=== PATIENT | male | born 1970 | race Caucasian/White ===

== ENCOUNTER 2023-03-20 22:45 | Inpatient (IN) | payer OTHER, BC ==
[~2023-03-20] VITALS: Ht 180.3 cm; Wt 92.5 kg
[2023-03-20 22:51] VITALS: BP_SYST 101; PULSE 98; RESP 20; TEMP 97.7; O2SAT 99
[2023-03-20 23:53] LABS: BASOPHILS # (AUTO) 0.1 K/uL (0.0-0.2); BASOPHILS % (AUTO) 0.8 % (0.0-2.0); EOSINOPHILS # (AUTO) 0.2 K/uL (0.0-0.4); EOSINOPHILS % (AUTO) 2.7 % (0.0-4.0); HEMATOCRIT 33.9 % (36-54); HEMOGLOBIN 10.7 g/dL (14.0-18.0); LYMPHOCYTES # (AUTO) 1.3 K/uL (1.0-5.5); LYMPHOCYTES % (AUTO) 19.6 % (20.5-51.5); MEAN CORPUSCULAR HEMOGLOBIN 29 pg (27-31); MEAN CORPUSCULAR HGB CONC 32 % (32-36); MEAN CORPUSCULAR VOLUME 90 fL (79.0-98.0); MONOCYTES # (AUTO) 0.6 K/uL (0.0-1.0); MONOCYTES % (AUTO) 9.3 % (1.7-9.3); NEUTROPHILS # (AUTO) 4.3 K/uL (1.8-7.7); NEUTROPHILS % (AUTO) 67.6 % (40.0-70.0); PLATELET COUNT (AUTO) 186 K/uL (130-430); RED BLOOD CELL COUNT(AUTO) 3.75 MIL/uL (4.2-6.2); RED CELL DISTRIBUTION WIDTH 16.6 % (9.0-15.0); WHITE BLOOD COUNT (AUTO) 6.4 K/uL (4.8-10.8)
[2023-03-21 00:07] LABS: ANION GAP 5 (5-15); CARBON DIOXIDE 33 mmol/L (23-29); CHLORIDE 99 mmol/L (98-107); CREATININE 5.02 mg/dL (0.55-1.30); GFR AFRICAN AMERICAN 16 mL/min (>90); GLUCOSE 102 mg/dL (74-106); POTASSIUM 3.9 mmol/L (3.5-5.1); SODIUM SERUM 137 mmol/L (136-145); UREA NITROGEN, BLOOD 39 mg/dL (8-21)
[2023-03-21 00:09] LABS: PROTHROMBIN TIME 10.4 SECS (9.5-12.5)
[2023-03-21 00:13] LABS: BILIRUBIN,URINE NEGATIVE (NEGATIVE); COLOR,URINE YELLOW (YELLOW); GLUCOSE,URINE NEGATIVE (NEGATIVE); KETONES,URINE NEGATIVE (NEGATIVE); LEUKOCYTE ESTERASE ,URINE NEGATIVE (NEGATIVE); NITRITE, URINE NEGATIVE (NEGATIVE); PH,URINE 7.5 (5.0-8.0); PROTEIN URINE 1+ (NEGATIVE); UROBILINOGEN,URINE 0.2 (0.2-1.0)
[2023-03-21 00:13] LABS: ALANINE AMINOTRANSFERASE 28 U/L (12-78); ALBUMIN 3.2 g/dL (3.4-4.8); ASPARTATE AMINOTRANSFERASE 15 U/L (10-37); CREATINE KINASE, TOTAL 45 U/L (39-308); TOTAL BILIRUBIN 0.2 mg/dL (0.0-1.0); TOTAL PROTEIN, SERUM 7.4 g/dL (6.4-8.3)
[2023-03-21 00:20] LABS: BLOOD, URINE TRACE (NEGATIVE); CLARITY/URINE HAZY (CLEAR)
[2023-03-21 00:22] LABS: GFR NON AFRICAN-AMERICAN 13 mL/min (>90)
[2023-03-21 00:29] LABS: BACTERIA,URINE None Seen /HPF (None Seen); RBC,URINE 0-3 /HPF (0-3); WBC,URINE 0-3 /HPF (0-3)
[2023-03-21] MEDS ORDERED: AMIO200T GT (01:39)
[2023-03-21] MEDS ORDERED: VAL2 GT (01:39)
[2023-03-21] MEDS ORDERED: FERR220S5 GT (01:39)
[2023-03-21] MEDS ORDERED: TAMS0.4C96 GT (01:39)
[2023-03-21] MEDS ORDERED: AMLO5TAB4 GT (01:39)
[2023-03-21] MEDS ORDERED: HAL2 GT (01:39)
[2023-03-21] MEDS ORDERED: LIP40 GT (01:39)
[2023-03-21] MEDS ORDERED: CLOP75TA32 GT (01:39)
[2023-03-21] MEDS ORDERED: MOM GT (01:39)
[2023-03-21] MEDS ORDERED: ACET325T39 GT (01:39)
[2023-03-21] MEDS ORDERED: ASPI-859 GT (01:39)
[2023-03-21] MEDS ORDERED: QUET200T GT (01:39)
[2023-03-21] MEDS ORDERED: BUSP10TA3 GT (01:39)
[2023-03-21 03:15] VITALS: BP_SYST 105; PULSE 83; RESP 20; TEMP 97.2
[2023-03-21 03:39] VITALS: BP_SYST 105; PULSE 83; RESP 20; TEMP 97.2; O2SAT 96
[2023-03-21 08:00] VITALS: BP_SYST 100; PULSE 77; RESP 16; TEMP 96.6; O2SAT 95
[2023-03-21] MEDS ORDERED: MILK OF MAGNESIA 30 ML UDC GT PRN (09:00)
[2023-03-21] MEDS ORDERED: AMIODARONE HCL 200 MG TABLET GT SCH (09:00)
[2023-03-21] MEDS ORDERED: HALOPERIDOL 1 MG TABLET (HALDOL) GT PRN (09:00)
[2023-03-21] MEDS ORDERED: CLOPIDOGREL BISULFATE 75 MG TABLET GT ONE (10:15)
[2023-03-21] MEDS ORDERED: busPIRone HCL 5 MG TABLET GT ONE (10:15)
[2023-03-21 12:25] VITALS: BP_SYST 120; PULSE 81; RESP 17; TEMP 97.5; O2SAT 94
[2023-03-21] MEDS: busPIRone HCL 5 MG TABLET GT SCH ×2 (13:50→20:21)
[2023-03-21] MEDS: QUEtiapine FUMARATE 100 MG TABLET GT SCH ×2 (14:43→20:21)
[2023-03-21 15:34] VITALS: BP_SYST 106; PULSE 81; RESP 16; TEMP 97.6; O2SAT 94
[2023-03-21 19:31] VITALS: BP_SYST 132; PULSE 82; RESP 18; TEMP 97.6; O2SAT 95
[2023-03-21] MEDS: TAMSULOSIN HCL 0.4 MG CAP GT SCH (20:21)
[2023-03-21] MEDS: ATORVASTATIN 20 MG TABLET GT SCH (20:22)
[2023-03-22 00:13] VITALS: BP_SYST 133; PULSE 88; RESP 18; TEMP 97.6; O2SAT 95
[2023-03-22] MEDS: busPIRone HCL 5 MG TABLET GT SCH ×3 (05:55→21:12)
[2023-03-22 06:00] LABS: BASOPHILS # (AUTO) 0.1 K/uL (0.0-0.2); EOSINOPHILS # (AUTO) 0.3 K/uL (0.0-0.4); EOSINOPHILS % (AUTO) 4.9 % (0.0-4.0); HEMATOCRIT 31.4 % (36-54); HEMOGLOBIN 9.9 g/dL (14.0-18.0); LYMPHOCYTES # (AUTO) 1.7 K/uL (1.0-5.5); LYMPHOCYTES % (AUTO) 28.8 % (20.5-51.5); MEAN CORPUSCULAR HEMOGLOBIN 29 pg (27-31); MEAN CORPUSCULAR HGB CONC 32 % (32-36); MEAN CORPUSCULAR VOLUME 91 fL (79.0-98.0); MONOCYTES # (AUTO) 0.6 K/uL (0.0-1.0); MONOCYTES % (AUTO) 9.7 % (1.7-9.3); NEUTROPHILS # (AUTO) 3.4 K/uL (1.8-7.7); NEUTROPHILS % (AUTO) 55.6 % (40.0-70.0); PLATELET COUNT (AUTO) 170 K/uL (130-430); RED BLOOD CELL COUNT(AUTO) 3.44 MIL/uL (4.2-6.2); RED CELL DISTRIBUTION WIDTH 16.7 % (9.0-15.0); WHITE BLOOD COUNT (AUTO) 6.1 K/uL (4.8-10.8)
[2023-03-22 06:16] LABS: TOTAL IRON BIND. CAPACITY 190 ug/dL (250-450)
[2023-03-22 06:25] LABS: ALBUMIN 3.2 g/dL (3.4-4.8); CALCIUM 9.8 mg/dL (8.4-11.0); CREATININE 6.35 mg/dL (0.55-1.30); POTASSIUM 3.9 mmol/L (3.5-5.1); THYROID STIMULATING HORMONE 4.8 uIu/mL (0.34-4.82); TOTAL BILIRUBIN 0.3 mg/dL (0.0-1.0); TOTAL PROTEIN, SERUM 6.8 g/dL (6.4-8.3)
[2023-03-22 08:02] VITALS: BP_SYST 114; PULSE 74; RESP 18; TEMP 97.7; O2SAT 97
[2023-03-22] MEDS: CLOPIDOGREL BISULFATE 75 MG TABLET GT SCH (08:21)
[2023-03-22] MEDS: ASPIRIN 81 MG TAB.CHEW GT SCH (08:21)
[2023-03-22] MEDS: AMIODARONE HCL 200 MG TABLET PO SCH (08:23)
[2023-03-22] MEDS: QUEtiapine FUMARATE 100 MG TABLET GT SCH ×3 (10:19→21:12)
[2023-03-22 12:00] VITALS: BP_SYST 117; PULSE 81; RESP 16; TEMP 98.2; O2SAT 94
[2023-03-22 16:00] VITALS: BP_SYST 104; PULSE 72; RESP 15; TEMP 98.4; O2SAT 95
[2023-03-22 20:00] VITALS: BP_SYST 124; PULSE 74; RESP 18; TEMP 97.6; O2SAT 94
[2023-03-22 21:00] VITALS: O2SAT 94
[2023-03-22] MEDS: TAMSULOSIN HCL 0.4 MG CAP GT SCH (21:12)
[2023-03-22] MEDS: ATORVASTATIN 20 MG TABLET GT SCH (21:12)
[2023-03-23 01:15] VITALS: BP_SYST 132; PULSE 70; RESP 18; TEMP 96.7; O2SAT 93
[2023-03-23] MEDS: busPIRone HCL 5 MG TABLET GT SCH ×3 (06:00→20:22)
[2023-03-23 07:33] VITALS: BP_SYST 121; PULSE 76; RESP 18; TEMP 98.2
[2023-03-23 08:00] VITALS: O2SAT 96
[2023-03-23] MEDS: ASPIRIN 81 MG TAB.CHEW GT SCH (08:29)
[2023-03-23] MEDS: CLOPIDOGREL BISULFATE 75 MG TABLET GT SCH (08:29)
[2023-03-23] MEDS: QUEtiapine FUMARATE 100 MG TABLET GT SCH ×3 (08:29→20:22)
[2023-03-23] MEDS: AMIODARONE HCL 200 MG TABLET PO SCH (08:31)
[2023-03-23 12:00] VITALS: BP_SYST 147; PULSE 100; RESP 21; TEMP 98; O2SAT 96
[2023-03-23 17:03] VITALS: BP_SYST 146; PULSE 81; RESP 20; TEMP 98.2; O2SAT 95
[2023-03-23 19:56] VITALS: BP_SYST 131; PULSE 73; RESP 18; TEMP 98.2; O2SAT 94
[2023-03-23] MEDS: ATORVASTATIN 20 MG TABLET GT SCH (20:22)
[2023-03-23] MEDS: TAMSULOSIN HCL 0.4 MG CAP GT SCH (20:22)
[2023-03-24] VITALS (8 sets, daily range): BP systolic 107–141; PULSE 70–85; RESP 18–20; TEMP 97.4–98.8; O2SAT 92–96
[2023-03-24 05:03] LABS: BASOPHILS # (AUTO) 0.1 K/uL (0.0-0.2); BASOPHILS % (AUTO) 0.7 % (0.0-2.0); EOSINOPHILS # (AUTO) 0.2 K/uL (0.0-0.4); EOSINOPHILS % (AUTO) 3.2 % (0.0-4.0); HEMATOCRIT 30.3 % (36-54); HEMOGLOBIN 9.7 g/dL (14.0-18.0); LYMPHOCYTES # (AUTO) 1.5 K/uL (1.0-5.5); MEAN CORPUSCULAR HEMOGLOBIN 29 pg (27-31); MEAN CORPUSCULAR HGB CONC 32 % (32-36); MEAN CORPUSCULAR VOLUME 91 fL (79.0-98.0); MONOCYTES # (AUTO) 0.6 K/uL (0.0-1.0); MONOCYTES % (AUTO) 7.9 % (1.7-9.3); NEUTROPHILS # (AUTO) 5.3 K/uL (1.8-7.7); NEUTROPHILS % (AUTO) 69.2 % (40.0-70.0); PLATELET COUNT (AUTO) 171 K/uL (130-430); RED BLOOD CELL COUNT(AUTO) 3.32 MIL/uL (4.2-6.2); RED CELL DISTRIBUTION WIDTH 16.5 % (9.0-15.0); WHITE BLOOD COUNT (AUTO) 7.7 K/uL (4.8-10.8)
[2023-03-24] MEDS: busPIRone HCL 5 MG TABLET GT SCH ×2 (05:23→14:01)
[2023-03-24 05:45] LABS: ALBUMIN 2.9 g/dL (3.4-4.8); CALCIUM 9.7 mg/dL (8.4-11.0); CREATININE 6.86 mg/dL (0.55-1.30); POTASSIUM 4.9 mmol/L (3.5-5.1); TOTAL BILIRUBIN 0.2 mg/dL (0.0-1.0); TOTAL PROTEIN, SERUM 6.5 g/dL (6.4-8.3)
[2023-03-24 08:07] LABS: FOLATE (FOLIC ACID) 10.6 ng/mL (>3.0)
[2023-03-24] MEDS: ASPIRIN 81 MG TAB.CHEW GT SCH (09:08)
[2023-03-24] MEDS: CLOPIDOGREL BISULFATE 75 MG TABLET GT SCH (09:08)
[2023-03-24] MEDS: QUEtiapine FUMARATE 100 MG TABLET GT SCH ×3 (09:09→21:40)
[2023-03-24] MEDS: AMIODARONE HCL 200 MG TABLET PO SCH (09:09)
[2023-03-24] MEDS: ATORVASTATIN 20 MG TABLET GT SCH (21:40)
[2023-03-24] MEDS: TAMSULOSIN HCL 0.4 MG CAP GT SCH (21:40)
[2023-03-25] MEDS ORDERED: EPOETIN ALFA-EPBX 4,000 UNITS/ML VIAL SUBCUT SCH (17:00)
== END 2023-03-24 22:20 | DRG 640 ==
LOC: SED 22:45 → STU 03-21 01:09 → SMU 03-24 16:42
PROVIDERS: ADMIT Family Medicine; ATTEND Family Medicine
PROC: 5A1D70Z Performance of Urinary Filtration, Intermittent, Less than 6 Hours Per Day (ICD-10-PCS; principal; 2023-03-22)
DX: E87.70 Fluid overload, unspecified (principal); N18.6 End stage renal disease; I13.2 Hypertensive heart and chronic kidney disease with heart failure and with stage 5 chronic kidney disease, or end stage renal disease; D64.9 Anemia, unspecified; I50.9 Heart failure, unspecified; I25.10 Atherosclerotic heart disease of native coronary artery without angina pectoris; Z20.822 Contact with and (suspected) exposure to COVID-19; F20.9 Schizophrenia, unspecified; F31.9 Bipolar disorder, unspecified; Z79.899 Other long term (current) drug therapy; Z99.2 Dependence on renal dialysis; Z95.5 Presence of coronary angioplasty implant and graft; Z87.891 Personal history of nicotine dependence; Z63.4 Disappearance and death of family member; I25.2 Old myocardial infarction; Z93.1 Gastrostomy status; R07.89 Other chest pain
CPT/HCPCS: 36415; 71045; 80053; 81000; 81001; 81015; 82550; 82607; 82728; 82746; 83540; 83550; 83605; 83880; 84443; 84484; 85025; 85610-TC; 85730-TC; 87040; 87086; 90935; 93005; 93306; 97110-GP; 97163-GP; 99291; G0378

== ENCOUNTER 2023-03-25 00:16 | Inpatient (IN) | payer OTHER, BC ==
[~2023-03-25] VITALS: Ht 162.6 cm; Wt 92.5 kg
[2023-03-25] VITALS (7 sets, daily range): BP systolic 100–130; PULSE 68–88; RESP 16–24; TEMP 96.7–98.3; O2SAT 91–96
[~2023-03-25 00:16] MED LIST: ACET325T39 GT; AMIO200T GT; AMLO5TAB4 GT; ASPI-859 GT; BUSP10TA3 GT; CLOP75TA32 GT; FERR220S5 GT; HAL2 GT; LIP40 GT; MOM GT; QUET200T GT; TAMS0.4C96 GT; VAL2 GT
[2023-03-25] MEDS ORDERED: HALOPERIDOL 1 MG TABLET (HALDOL) GT PRN (00:30)
[2023-03-25] MEDS ORDERED: MILK OF MAGNESIA 30 ML UDC GT PRN (00:30)
[2023-03-25] MEDS: busPIRone HCL 5 MG TABLET GT SCH ×2 (05:54→14:52)
[2023-03-25] MEDS ORDERED: CLOPIDOGREL BISULFATE 75 MG TABLET GT SCH (09:00)
[2023-03-25] MEDS ORDERED: ASPIRIN 81 MG TAB.CHEW GT SCH (09:00)
[2023-03-25] MEDS ORDERED: AMIODARONE HCL 200 MG TABLET PO SCH (09:00)
[2023-03-25] MEDS: QUEtiapine FUMARATE 100 MG TABLET GT SCH ×2 (09:29→14:52)
[2023-03-25] MEDS ORDERED: HEPARIN SODIUM,PORCINE 5,000 UNITS/ML VIAL MC ONE (15:00)
[2023-03-25] MEDS ORDERED: EPOETIN ALFA-EPBX 4,000 UNITS/ML VIAL SUBCUT SCH (17:00)
[2023-03-25] MEDS ORDERED: ATORVASTATIN 20 MG TABLET GT SCH (21:00)
[2023-03-25] MEDS ORDERED: TAMSULOSIN HCL 0.4 MG CAP GT SCH (21:00)
== END 2023-03-25 18:17 | DRG 682 ==
LOC: SED 00:16 → SMU 00:28
PROVIDERS: ADMIT Family Medicine; ATTEND Family Medicine
PROC: 5A1D70Z Performance of Urinary Filtration, Intermittent, Less than 6 Hours Per Day (ICD-10-PCS; principal; 2023-03-25)
DX: I12.0 Hypertensive chronic kidney disease with stage 5 chronic kidney disease or end stage renal disease (principal); N18.6 End stage renal disease; D64.9 Anemia, unspecified; N40.0 Benign prostatic hyperplasia without lower urinary tract symptoms; F20.9 Schizophrenia, unspecified; Z99.2 Dependence on renal dialysis; Z79.899 Other long term (current) drug therapy
CPT/HCPCS: 87081; 90935; 99285; J1644; Q5106